=== PATIENT | female | born 1975 | race American Indian/Alaskan Native ===

== ENCOUNTER 2019-03-02 14:52 | Observation (INO) | payer OTHER ==
[2019-03-02] MEDS ORDERED: dilTIAZem 25 MG/5 ML INJ ONE (15:21)
[2019-03-02] MEDS ORDERED: SODIUM CHLORIDE 0.9% 1000 ML 1,000 ML ONE ×2 (15:26→17:44)
[2019-03-02] MEDS ORDERED: SODIUM CHLORIDE 0.9% 1000 ML 1,000 ML IV ONE ×2 (15:31→17:03)
[2019-03-02] MEDS ORDERED: ASPIRIN 325 MG TAB PO ONE (15:31)
[2019-03-02] MEDS ORDERED: dilTIAZem 25 MG/5 ML INJ IV ONE (15:32)
--- NOTE | 2019-03-02 15:36 | Emergency Department Report ---
ED Palpitations HPI - General Chief Complaint: Arrhythmia/Palpitations Stated Complaint: SOB/LIGHT HEADED/PALPITATION Time Seen by Provider: 03/02/19 15:15 Source: patient Mode of arrival: Ambulatory Limitations: No Limitations - History of Present Illness Initial Comments: Patient is a 43-year-old female that presents emergency room with complaints of shortness of breath, lightheadedness and palpitations. Patient denies chest pain. Patient states her symptoms started yesterday. Patient states they're intermittent. Patient states they stopped last night and came back this morning. Patient denies abdominal pain. Patient denies blurry vision. Patient denies syncope. Patient denies loss of conscious. Patient denies drug use. Patient denies alcohol use. Patient denies caffeine use. Patient states she has past medical history of diabetes and hypertension. Patient states she had a tubal ligation. Patient states she's never had A. fib in the past. MD Complaint: rapid heart beat, "heart racing", palpitations -: Sudden, days(s) - Related Data Home Medications Medication Instructions Recorded Confirmed Last Taken Insulin NPH Hum/Reg Insulin Hm 15 unit SQ QDAY 03/02/19 03/02/19 03/01/19 [Relion Novolin 70-30 Flexpen] Zolpidem [Ambien] 10 mg PO QHS 03/02/19 03/02/19 03/01/19 amLODIPine [Norvasc] 10 mg PO DAILY 03/02/19 03/02/19 03/01/19 Previous Rx's Medication Instructions Recorded Last Taken Type Metformin HCl [Glucophage] 1 tab PO DAILY #30 tablet 05/05/16 03/01/19 Rx Allergies Allergy/AdvReac Type Severity Reaction Status Date / Time No Known Allergies Allergy Verified 03/02/19 15:23 ED Review of Systems ROS: Stated complaint: SOB/LIGHT HEADED/PALPITATION Other details as noted in HPI Constitutional: denies: chills, fever Eyes: denies: eye pain, eye discharge, vision change ENT: denies: ear pain, throat pain Respiratory: shortness of breath. denies: cough, wheezing Cardiovascular: palpitations, dyspnea on exertion. denies: chest pain Endocrine: no symptoms reported Gastrointestinal: denies: abdominal pain, nausea, diarrhea Genitourinary: denies: urgency, dysuria, discharge Musculoskeletal: denies: back pain, joint swelling, arthralgia Skin: denies: rash, lesions Neurological: denies: headache, weakness, paresthesias Psychiatric: denies: anxiety, depression Hematological/Lymphatic: denies: easy bleeding, easy bruising ED Past Medical Hx - Past Medical History Previous Medical History?: Yes Hx Hypertension: Yes Hx Diabetes: Yes - Surgical History Past Surgical History?: No Additional Surgical History: tubal ligation - Family History Family history: no significant - Social History Smoking Status: Current Every Day Smoker Substance Use Type: Alcohol, Prescribed - Medications Home Medications: Home Medications Medication Instructions Recorded Confirmed Last Taken Type Metformin HCl [Glucophage] 1 tab PO DAILY #30 tablet 05/05/16 03/02/19 03/01/19 Rx Insulin NPH Hum/Reg Insulin Hm 15 unit SQ QDAY 03/02/19 03/02/19 03/01/19 H istory [Relion Novolin 70-30 Flexpen] Zolpidem [Ambien] 10 mg PO QHS 03/02/19 03/02/19 03/01/19 History amLODIPine [Norvasc] 10 mg PO DAILY 03/02/19 03/02/19 03/01/19 History ED Physical Exam - General Limitations: No Limitations General appearance: alert, in no apparent distress - Head Head exam: Present: atraumatic, normocephalic - Eye Eye exam: Present: normal appearance, PERRL Pupils: Present: normal accommodation - ENT ENT exam: Present: mucous membranes moist - Neck Neck exam: Present: normal inspection - Respiratory Respiratory exam: Present: normal lung sounds bilaterally. Absent: respiratory distress, wheezes, rales - Cardiovascular Cardiovascular Exam: Present: tachycardia, irregular rhythm. Absent: systolic murmur, diastolic murmur, rubs, gallop - GI/Abdominal GI/Abdominal exam: Present: soft, normal bowel sounds - Extremities Exam Extremities exam: Present: normal inspection - Back Exam Back exam: Present: normal inspection - Neurological Exam Neurological exam: Present: alert, oriented X3 - Psychiatric Psychiatric exam: Present: normal affect, normal mood - Skin Skin exam: Present: warm, dry, intact, normal color. Absent: rash ED Course Vital Signs 03/02/19 03/02/19 03/02/19 15:39 15:52 16:13 Temperature Pulse Rate 160 H 137 H 140 H Respiratory 16 Rate Blood Pressure 166/89 Blood Pressure 134/87 [Left] O2 Sat by Pulse 96 Oximetry 03/02/19 03/02/19 03/02/19 16:40 16:41 16:49 Temperature 99.2 F Pulse Rate 105 H 88 86 Respiratory 16 16 Rate Blood Pressure Blood Pressure 139/81 119/83 [Left] O2 Sat by Pulse 98 100 Oximetry 03/02/19 03/02/19 03/02/19 18:06 19:10 19:53 Temperature 98.2 F 99.2 F Pulse Rate 95 H 93 H Respiratory 16 16 Rate Blood Pressure Blood Pressure 128/92 130/81 [Left] O2 Sat by Pulse 95 97 Oximetry 03/02/19 20:32 Temperature Pulse Rate 90 Respiratory Rate Blood Pressure 131/81 Blood Pressure [Left] O2 Sat by Pulse Oximetry - Reevaluation(s) Reevaluation #1: Initial evaluation done. Patient found to be A. fib RVR. Patient given Cardizem 25 mg. Patient was placed on a Cardizem drip. Patient was given fluids. Patient's heart rate 175 and irregular. 03/02/19 15:15 Reevaluation #2: Patient given Cardizem. Patient's heart rate decreased to 120. 03/02/19 15:25 Reevaluation #3: Patient's on Cardizem drip. Patient's heart rate between 100 and 130 and irregular rhythm. I will decrease the Cardizem drip 5 mg and give the patient when necessary Lopressor. 03/02/19 16:09 Reevaluation #4: Patient's heart rate better after Lopressor. Still Cardizem drip. I discussed all results with patient. Patient will be admitted to the hospitalist service. I discussed plan of care. Patient agrees plan of care and admission. 03/02/19 16:57 Reevaluation #5: Heart rate better. Patient EKG repeated and shows a sinus rhythm at 90. Patient's EKG improved. Patient states her symptoms have resolved. Cardizem drip decreased to 5. 03/02/19 17:44 - Consultations Consultation #1: hospitalist consult for admission. Hospitalist to admit patient. Bridge orders placed. Patient to be admitted to the ICU. 03/02/19 16:56 Consultation #2: Cardiology consult. I discussed case with cardiology. Consult placed. 03/02/19 16:57 ED Medical Decision Making - Lab Data Result diagrams: 03/02/19 15:37 03/02/19 15:37 - EKG Data -: EKG Interpreted by Me EKG shows normal: axis, intervals, QRS complexes, ST-T waves Rate: tachycardia - EKG Data Interpretation: other (A. fib RVR) - Radiology Data Radiology results: report reviewed, image reviewed interpreted by me: no Acute findings on chest x-ray. - Medical Decision Making is a 43-year-old female that presents emergency room with complaints of shortness of breath and lightheadedness. Patient found to be in A. fib RVR. Patient given Cardizem immediately along with saline bolus. Patient's heart rate initially improving patient was placed on a Cardizem drip. Patient's heart rate stayed elevated and patient was given Lopressor 5 mg and her heart rate improved hematocrit. Patient improved. Patient states her symptoms are better. Patient's labs unremarkable. Patient's EKG shows A. fib. A repeat EKG was done and shows patient converted to sinus rhythm.. She will be admitted to the hospitalist service and to the ICU. Cardiology consult. - Differential Diagnosis A. fib RVR. Short of breath. lightheadedness. deHydration. Critical Care Time: Yes Critical care attestation.: If time is entered above; I have spent that time in minutes in the direct care of this critically ill patient, excluding procedure time. Critical Care Time: 55 minutes ED Disposition Clinical Impression: SOB (shortness of breath), Atrial fibrillation with RVR, New onset a-fib, Lightheadedness, Hyperglycemia Disposition: -09 OP ADMIT IP TO THIS HOSP Is pt being admited?: Yes Does the pt Need Aspirin: No Condition: Critical Time of Disposition: 17:03
[2019-03-02] MEDS ORDERED: dilTIAZem/D5W 100 MG/100 ML BAG IV SCH ×2 (16:00)
--- NOTE | 2019-03-02 16:03 | XRay Report ---
CHEST 1 VIEW INDICATION / CLINICAL INFORMATION: Chest Pain. COMPARISON: None available. FINDINGS: SUPPORT DEVICES: None. HEART / MEDIASTINUM: No significant abnormality. LUNGS / PLEURA: No significant pulmonary or pleural abnormality. No pneumothorax. ADDITIONAL FINDINGS: No significant additional findings. IMPRESSION: 1. No acute findings. Signer Name: Murtaza Tolentino MD Signed: 03/02/2019 3:58 PM Workstation Name: [id number]
[2019-03-02 16:20] LABS: Basophils % (Auto) 0.6 % (0.0-1.8); Eosinophils % (Auto) 0.6 % (0.0-4.3); Hematocrit 40.7 % (30.3-42.9); Hemoglobin 13.6 gm/dl (10.1-14.3); Lymphocytes # (Auto) 2.5 K/mm3 (1.2-5.4); Lymphocytes % (Auto) 33.1 % (13.4-35.0); Mean Corpuscular HGB Conc 33 % (30-34); Mean Corpuscular Volume 85 fl (79-97); Monocytes # (Auto) 0.6 K/mm3 (0.0-0.8); Monocytes % (Auto) 8.2 % (0.0-7.3); Platelet Count 393 K/mm3 (140-440); Red Blood Count 4.77 M/mm3 (3.65-5.03); Red Cell Distribution Width 14.3 % (13.2-15.2)
[2019-03-02] MEDS ORDERED: METOPROLOL TARTRATE 5 MG/5 ML INJ IV ONE (16:22)
[2019-03-02 16:35] LABS: Alanine Aminotransferase 10 units/L (7-56); Albumin 3.7 g/dL (3.9-5); BUN/Creatinine Ratio 25; Blood Urea Nitrogen 15 mg/dL (7-17); Calcium 9.1 mg/dL (8.4-10.2); Hemolysis Index 28
[2019-03-02 17:00] LABS: Amphetamine Screen,Urine PRESUMPTIVE NEGATIVE; Benzodiazepines Screen,Urine PRESUMPTIVE NEGATIVE; Cannabinoid Screen,Urine PRESUMPTIVE NEGATIVE; Cocaine Screen,Urine PRESUMPTIVE NEGATIVE; Methadone Screen,Urine PRESUMPTIVE NEGATIVE; Opiate Screen,Urine PRESUMPTIVE NEGATIVE
[2019-03-02 17:05] LABS: Bilirubin,Urine NEG (Negative); Blood,Urine NEG (Negative); Color,Urine Straw (Yellow); Mucus,Urine FEW /HPF; Protein,Urine <15 mg/dL mg/dL (Negative); Urobilinogen,Urine < 2.0 mg/dL (<2.0)
[2019-03-02] MEDS ORDERED: ONDANSETRON 4 MG/2 ML INJ IV PRN (19:43)
[2019-03-02] MEDS ORDERED: ACETAMINOPHEN 325 MG TAB PO PRN (19:43)
[2019-03-02] MEDS ORDERED: HYDROmorphone 1 MG/1 ML INJ IV PRN (19:43)
[2019-03-02] MEDS ORDERED: oxyCODONE /ACETAMINOPHEN 5-325MG TAB PO PRN (19:43)
[2019-03-02] MEDS ORDERED: SODIUM CHLORIDE 0.9% 1000 ML 1,000 ML IV SCH (20:00)
[2019-03-02] MEDS ORDERED: ENOXAPARIN 40 MG/0.4 ML INJ SUB-Q ONE (20:19)
[2019-03-02] MEDS: dilTIAZem CD 120 MG CAP PO SCH (20:32)
[2019-03-02] MEDS: ENOXAPARIN 40 MG/0.4 ML INJ SUB-Q SCH (20:35)
[2019-03-02] MEDS ORDERED: REG INSULIN SQ SCH (22:00)
[2019-03-02] MEDS ORDERED: [UNRECOGNIZED DRUG - OTHER] SQ SCH (22:00)
[2019-03-02] MEDS ORDERED: METFORMIN HCL PO SCH (22:00)
[2019-03-02] MEDS ORDERED: INSULIN NPH HUM SQ SCH (22:00)
[2019-03-02] MEDS: INSULIN LISPRO 100 UNIT/ML SUB-Q SCH (22:52)
[2019-03-02] MEDS: FAMOTIDINE 20 MG TAB PO SCH (22:52)
[2019-03-02] MEDS: metFORMIN 500 MG TAB PO SCH (22:52)
[2019-03-02] MEDS: INSULIN NPH/REGULAR 70/30 INJ SUB-Q SCH (22:52)
[2019-03-02] MEDS ORDERED: MELATONIN 5 MG TAB PO PRN (23:52)
--- NOTE | 2019-03-03 07:08 | Event Note ---
Date: 03/02/19 See H/p in reports Afib with rvr
[2019-03-03] MEDS: FAMOTIDINE 20 MG TAB PO SCH (09:12)
[2019-03-03] MEDS: ENOXAPARIN 40 MG/0.4 ML INJ SUB-Q SCH (09:12)
[2019-03-03] MEDS: dilTIAZem CD 120 MG CAP PO SCH (09:12)
[2019-03-03] MEDS: INSULIN LISPRO 100 UNIT/ML SUB-Q SCH ×3 (09:15→17:25)
[2019-03-03 09:40] LABS: Alanine Aminotransferase 9 units/L (7-56); Albumin 3.9 g/dL (3.9-5); BUN/Creatinine Ratio 18; Blood Urea Nitrogen 11 mg/dL (7-17); Hemolysis Index 2
[2019-03-03 09:54] LABS: Basophils % (Auto) 0.5 % (0.0-1.8); Eosinophils # (Auto) 0.1 K/mm3 (0.0-0.4); Eosinophils % (Auto) 1.4 % (0.0-4.3); Hematocrit 39.6 % (30.3-42.9); Lymphocytes # (Auto) 2.1 K/mm3 (1.2-5.4); Lymphocytes % (Auto) 33.6 % (13.4-35.0); Mean Corpuscular HGB Conc 33 % (30-34); Mean Corpuscular Volume 85 fl (79-97); Monocytes # (Auto) 0.5 K/mm3 (0.0-0.8); Monocytes % (Auto) 7.4 % (0.0-7.3); Platelet Count 347 K/mm3 (140-440); Red Blood Count 4.66 M/mm3 (3.65-5.03); Red Cell Distribution Width 14.2 % (13.2-15.2)
--- NOTE | 2019-03-03 09:59 | Consultation ---
History of Present Illness Consult date: 03/03/19 Consult reason: atrial fibrillation History of present illness: 43 year old female with past medical history of hypertension and type II DM presenting with palpitations and diagnosed with afib and RVR. She spontaneously converted to sinus rhythm and is currently asymptomatic. She denies chest pain or shortness of breath. She denies alcohol or drug use. She denies history of thyroid disease. No family history of atrial fibrillation. No bleeding diathesis. Past History Past Medical History: diabetes, hypertension Past Surgical History: No surgical history Social history: no significant social history Family history: no significant family history Medications and Allergies Allergies Allergy/AdvReac Type Severity Reaction Status Date / Time No Known Allergies Allergy Verified 03/02/19 15:23 Home Medications Medication Instructions Recorded Confirmed Last Taken Type Metformin HCl [Glucophage] 1 tab PO DAILY #30 tablet 05/05/16 03/02/19 03/01/19 Rx Insulin NPH Hum/Reg Insulin Hm 15 unit SQ QDAY 03/02/19 03/02/19 03/01/19 History [Relion Novolin 70-30 Flexpen] Zolpidem [Ambien] 10 mg PO QHS 03/02/19 03/02/19 03/01/19 History amLODIPine [Norvasc] 10 mg PO DAILY 03/02/19 03/02/19 03/01/19 History Active Meds: Active Medications Acetaminophen (Tylenol) 650 mg PO Q4H PRN PRN Reason: Pain MILD(1-3)/Fever >100.5/PEREZ Diltiazem HCl (Cardizem Cd) 120 mg PO QDAY COUNTS INCLUDE 234 BEDS AT THE [facility] Last Admin: 03/03/19 09:12 Dose: 120 mg Documented by: Enoxaparin Sodium (Lovenox) 40 mg SUB-Q QDAY COUNTS INCLUDE 234 BEDS AT THE [facility] Last Admin: 03/03/19 09:12 Dose: 40 mg Documented by: Famotidine (Pepcid) 20 mg PO BID COUNTS INCLUDE 234 BEDS AT THE [facility] Last Admin: 03/03/19 09:12 Dose: 20 mg Documented by: Hydromorphone HCl (Dilaudid) 0.5 mg IV Q3H PRN PRN Reason: Pain , Severe (7-10) Sodium Chloride (Nacl 0.9% 1000 Ml) 1,000 mls @ 75 mls/hr IV DIRECT COUNTS INCLUDE 234 BEDS AT THE [facility] Last Admin: 03/02/19 20:21 Dose: 75 mls/hr Documented by: Insulin Human Isoph/Insulin Regular (Humulin 70/30) 10 unit SUB-Q BID COUNTS INCLUDE 234 BEDS AT THE [facility] Last Admin: 03/02/19 22:52 Dose: 10 unit Documented by: Insulin Human Lispro (Humalog) 0 unit SUB-Q ACHS COUNTS INCLUDE 234 BEDS AT THE [facility]; Protocol Last Admin: 03/03/19 09:15 Dose: 2 unit Documented by: Melatonin (Melatonin) 10 mg PO QHS PRN PRN Reason: Sleep Metformin HCl (Glucophage) 500 mg PO BID COUNTS INCLUDE 234 BEDS AT THE [facility] Last Admin: 03/02/19 22:52 Dose: 500 mg Documented by: Ondansetron HCl (Zofran) 4 mg IV Q8H PRN PRN Reason: Nausea And Vomiting Oxycodone/Acetaminophen (Percocet 5/325) 1 tab PO Q6H PRN PRN Reason: Pain, Moderate (4-6) Sodium Chloride (Sodium Chloride Flush Syringe 10 Ml) 10 ml IV BID COUNTS INCLUDE 234 BEDS AT THE [facility] Last Admin: 03/03/19 09:15 Dose: 10 ml Documented by: Sodium Chloride (Sodium Chloride Flush Syringe 10 Ml) 10 ml IV PRN PRN PRN Reason: LINE FLUSH Review of Systems All systems: negative Physical Examination Vital Signs Pulse 160 H 03/02/19 15:39 General appearance: no acute distress Neck: Positive: neck supple Cardiac: Positive: Reg Rate and Rhythm Lungs: Positive: Normal Exam Neuro: Positive: Grossly Intact Abdomen: Positive: Soft Extremities: Absent: edema Results 03/03/19 08:42 03/03/19 08:42 Cardiac Enzymes 03/02/19 03/03/19 Range/Units 15:37 08:42 AST 11 11 (5-40) units/L CBC 03/02/19 03/03/19 Range/Units 15:37 08:42 WBC 7.6 6.4 (4.5-11.0) K/mm3 RBC 4.77 4.66 (3.65-5.03) M/mm3 Hgb 13.6 13.0 (10.1-14.3) gm/dl Hct 40.7 39.6 (30.3-42.9) % Plt Count 393 347 (140-440) K/mm3 Lymph # 2.5 2.1 (1.2-5.4) K/mm3 [place] # 0.6 0.5 (0.0-0.8) K/mm3 Eos # 0.0 0.1 (0.0-0.4) K/mm3 Baso # 0.0 0.0 (0.0-0.1) K/mm3 Comprehensive Metabolic Panel 03/02/19 03/03/19 Range/Units 15:37 08:42 Sodium 139 140 (137-145) mmol/L Potassium 3.8 4.2 (3.6-5.0) mmol/L Chloride 99.1 100.1 (98-107) mmol/L Carbon Dioxide 21 L 26 (22-30) mmol/L BUN 15 11 (7-17) mg/dL Creatinine 0.6 L 0.6 L (0.7-1.2) mg/dL Glucose 309 H 182 H (65-100) mg/dL Calcium 9.1 9.0 (8.4-10.2) mg/dL AST 11 11 (5-40) units/L ALT 10 9 (7-56) units/L Alkaline Phosphatase 95 97 (35-129) units/L Total Protein 7.4 7.0 (6.3-8.2) g/dL Albumin 3.7 L 3.9 (3.9-5) g/dL - EKG Interpretation EKG: sinus rhythm EKG interpretations - Telemetry EKG Rhythm: Sinus Rhythm Assessment and Plan Paroxysmal atrial fibrillation with RVR CHADS-VASc score = 3 Systemic Hypertension TYpe II DM Recommendations: Metoprolol 50 mg po bid Eliquis 5 mg po bid Check TSH and free T4 Order echocardiogram Outpatient cardiac follow-up will be scheduled
--- NOTE | 2019-03-03 10:32 | History and Physical Report ---
CHIEF COMPLAINT: Palpitations since morning. HISTORY OF PRESENT ILLNESS: A 43-year-old -[place] female with history of insulin-dependent diabetes and hypertension and comes in for palpitations, shortness of breath, dizziness and lightheadedness. No chest pain. Her symptoms started yesterday, but became more prominent this morning. Severe palpitations. No syncope. Some lightheadedness is present. No drug use or alcohol use. No fever or chills. No recent travel. Never had any irregular rhythms in the past. PAST MEDICAL HISTORY: Significant for Htn PAST SURGICAL HISTORY: tubal ligation. FAMILY HISTORY: Hypertension. SOCIAL HISTORY: Smokes over a pack a day. CURRENT MEDICATIONS: Metformin in the morning, Ambien 10 mg at bedtime and amlodipine 10 mg once a day. REVIEW OF SYSTEMS: Significant for palpitations, shortness of breath and lightheadedness. No chest pain. Otherwise, review of systems is negative. PHYSICAL EXAMINATION: GENERAL: Middle-aged female, cooperative during examination. VITAL SIGNS: Blood pressure is 144/91, temperature is 98. Initial pulse rate was 160, which came down to 88 with the Cardizem drip. HEENT: Unremarkable. Pupils are equal and reactive. NECK: Supple, no lymphadenopathy and no thyromegaly. LUNGS: Clear to auscultation and percussion. Good air entry. CARDIOVASCULAR SYSTEM: S1 and S2 are heard. Rapid heart rate. Apical impulse in left fifth intercostal space and midclavicular line. ABDOMEN: Soft and benign. No hepatosplenomegaly. No guarding. No rigidity. Hernial orifices are normal. EXTREMITIES: Good pedal pulses. No pedal edema. CENTRAL NERVOUS SYSTEM: Alert and oriented x 4, nonfocal exam. DIAGNOSTIC DATA: EKG significant for supraventricular tachycardia with the heart rate of 160 per minute. Chest x-ray: No acute findings. LABORATORY DATA: CBC is normal. Electrolytes are normal. Glucose is 306. Hemoglobin A1c is 10.6. Urine is normal. Drug screen is normal. ASSESSMENT AND PLAN: 1. Supraventricular tachycardia. The patient was started on Cardizem drip in the Emergency Room. The patient was in the Emergency Room for 4-6 hours, during which period, the heart rate came down to 82 and normal sinus rhythm. The patient was initiated on p.o. Cardizem. Her amlodipine was stopped. Initially, the patient was supposed to be admitted to ICU. The patient was downgraded to telemetry and the patient was admitted to telemetry in sinus rhythm with the heart rate of 86 per minute. 2. Hypertension. Continue Cardizem CD and amlodipine to be discontinued because they both are calcium channel blockers and Cardizem CD has effect on the heart rhythm. 3. Insulin-dependent diabetes. The patient is taking insulin only once a day. Insulin dosage was split and twice daily and dosage may have to be increased because her hemoglobin A1c is very high. The patient to be counseled by the primary team about the uncontrolled diabetes. 4. Deep venous thrombosis prophylaxis, Lovenox 40 mg subcutaneous daily. Cardiology consult is requested. Echocardiogram is ordered. JOB# [id number] HITESH/NHI STANLEY
[2019-03-03] MEDS ORDERED: APIXABAN 5 MG TAB PO SCH (11:00)
[2019-03-03] MEDS ORDERED: METOPROLOL TARTRATE 50 MG TAB PO SCH (11:00)
[2019-03-03] MEDS: metFORMIN 500 MG TAB PO SCH (12:00)
[2019-03-03 12:54] VITALS: BP 121/71
[2019-03-03] MEDS: INSULIN NPH/REGULAR 70/30 INJ SUB-Q SCH (13:59)
--- NOTE | 2019-03-03 15:08 | Discharge Summary ---
Providers - Providers Date of Admission: 03/02/19 16:59 Date of discharge: 03/03/19 Attending physician: SAKINA JERONIMO 03/02/19 16:57 Consult to Physician [CONS] Routine Comment: Consulting Provider: KRISTEN MEDEIROS Physician Instructions: Reason For Exam: new afib, afib rvr. Primary care physician: [facility] [facility]ER Hospitalization Reason for admission: Afib with rapid ventricular rate Condition: Stable Pertinent studies: Chest x-ray Echocardiogram Hospital course: Very pleasant 43-year-old female patient with significant history of hypertension and diabetes mellitus was admitted through emergency room with palpitations noted to have A. fib with rapid ventricular rate. Patient's rhythm converted to sinus, symptomatically managed evaluated by cardiology Her on beta blockers and anticoagulation with Eliquis. Thyroid tests was within normal limits. Echocardiogram EF 50-55% Today patient is comfortable in no new complaints vital signs stable Blood sugars were uncontrolled medications optimized Patient is hemodynamically and clinically stable at discharge Cleared by cardiology for DC on medications and follow-up for further evaluation and management During cessation counseling advised nicotine patch as needed Discharge diagnosis: --Atrial fibrillation with rapid ventricular rate; Converted to sinus, continue beta blockers anticoagulation Follow up with whale fisherman chads score-3 --Type 2 diabetes mellitus; at check sliding scale coverage and ADA diet Insulin as needed --Hypertension; moderate control Continue current antihypertensives and when necessary medications --Ongoing tobacco use; smoking cessation, nicotine patch as needed This clinically stable for discharge Disposition: DC-01 TO HOME OR SELFCARE Time spent for discharge: 32 min Core Measure Documentation - Palliative Care Palliative Care/ Comfort Measures: Not Applicable - Core Measures Any of the following diagnoses?: none Exam - Constitutional Vitals: Temp Pulse Resp BP Pulse Ox 97.0 F L 90 18 121/71 100 03/03/19 04:11 03/03/19 12:53 03/03/19 10:00 03/03/19 12:53 03/03/19 10:00 General appearance: Present: no acute distress, well-nourished - EENT Eyes: Present: PERRL, EOM intact - Neck Neck: Present: supple, normal ROM - Respiratory Respiratory effort: normal Respiratory: bilateral: diminished, negative: rales, rhonchi, wheezing - Cardiovascular Rhythm: regular Heart Sounds: Present: S1 & S2 - Extremities Extremities: no ischemia, No edema - Abdominal General gastrointestinal: Present: soft, non-tender, non-distended, normal bowel sounds - Integumentary Integumentary: Present: clear, warm - Musculoskeletal Musculoskeletal: strength equal bilaterally, generalized weakness - Psychiatric Psychiatric: appropriate mood/affect, intact judgment & insight - Neurologic Neurologic: CNII-XII intact, focal deficits Plan Activity: no restrictions Diet: diabetic Additional Instructions: If you have chest pain or palpitations, contact M.D.or go to emergency room Follow up with: PRIMARY CAREMD [Primary Care Provider] - 7 Days MELANIE MAY MD [Staff Physician] - 7 Days Prescriptions: Apixaban [Eliquis] 5 mg PO Q12HR #60 tablet Metoprolol [Lopressor TAB] 50 mg PO BID #60 tablet
[2019-03-03] MEDS ORDERED: ZOLPIDEM 10 MG TAB PO SCH (22:00)
== END 2019-03-03 18:30 | disposition home or self-care (01) ==
LOC: ED 14:52 → CC1 16:59 → INTOOBSV 16:59 → CC1 18:45 → 4A 20:14
PROVIDERS: ADMIT Internal Medicine; ATTEND Internal Medicine
DX: I47.1 Supraventricular tachycardia (principal); I10 Essential (primary) hypertension; E11.9 Type 2 diabetes mellitus without complications
CPT/HCPCS: 36415; 71045; 80053; 80307; 81001; 82962; 83036; 84443; 84484; 85025; 93005; 93010; 93306; 94760; 96372; 96374; 96375; 99291; G0378; J1650; J7030; J1815